=== PATIENT | male | born 1945 | race Caucasian/White ===

== ENCOUNTER 2016-05-16 14:31 | Outpatient (RCR) | payer MEDICARE, OTHER ==
--- OUTSIDE RECORDS SUMMARY | 2016-02-23 09:55 | XMS REPORT | Continuity of Care Document ---
Author Author [facility] Organization [facility] Address Unknown Phone Unavailable Care Team Providers Care Cripple Cutter Name Role Phone Ranulfo Oswaldo PCP [phone] Source Comments Some departments are not documenting in the electronic medical record. If you do not see the information that you expected, contact Release of Information in the Health Information Management department at [phone] for further assistance in locating additional records.[facility] Active Allergies and Adverse Reactions No Known Allergies Current Medications Prescription Sig. Disp. Refills Start End Date Status Date levETIRAcetam (KEPPRA) Take 1 Tab by mouth twice 180 Tab 3 08/03/19 Active 500 mg tablet daily. 16 acetaminophen (TYLENOL) Take 2 Tabs by mouth 30 Tab 1 08/19/19 Active 325 mg tablet every 4 hours as needed. 16 dexamethasone (DECADRON) Take 1 Tab by mouth as 90 Tab 0 08/19/19 Active 4 mg tablet directed. Taper schedule: 16 4 mg q 8 hours for 3 days, then 4 mg q 12 hours for 3 days, then 2 mg q 12 hours , and continue docusate (COLACE) 100 mg Take 1 Cap by mouth twice 180 Cap 3 08/19/19 Active capsule daily. 16 temozolomide (TEMODAR) 20 1 tab daily 30 Cap 1 08/31/19 Active mg capsule 16 Temozolomide 140 mg cap 1 tab daily 30 Cap 1 08/31/19 Active 16 ondansetron (ZOFRAN) 8 mg 1 tab daily 1 hour prior 30 Tab 11 08/31/19 Active tablet to chemo daily 16 trimethoprim/sulfamethoxa take 1 tab 3 times weekly 12 Tab 3 08/31/19 Active zole (BACTRIM DS) 160/800 16 mg tablet LORazepam (ATIVAN) 1 mg 1 tab 1 hour prior to 30 Tab 5 08/31/19 Active tablet chemo daily 16 Active Problems Problem Noted Date Urinary retention 08/18/2015 GBM (glioblastoma multiforme) (HCC) 08/16/2015 Overview: HPI: Mr. Mendoza is a 69 y.o.gentleman who presented with dizziness, headaches, lethargy, and worsening memory loss beginning of July. The symptoms progressively worsened over three weeks. He had an MRI of the brain performed 07/26/2015. This showed irregularly peripherally enhancing mass involving the right temporal lobe with expansion of the temporal lobe and surrounding edema most consistent with a glioma tumor such as glioblastoma multiforme. He did not have any seizures. He underwent right temporal craniotomy, tumor resection on 08/16/15. Pathology showed Glioblastoma, WHO Grade IV. He has a post op MRI head that showed interval right temporal mass resection without evidence of residual mass, expected postoperative blood products and edema resulting in mild mass effect and minimal right to left midline shift. Mr. Mendoza has recovered well from surgery without any deficits. Recommendations: Reviewed MRI and pathology today with Mr. Mendoza and his . Discussed that unfortunately glioblastoma is not a curable cancer but is treatable. We recommended standard treatment for glioblastoma with concurrent temozolomide and radiation. Temozolamide dose will be 75mg/m2 daily during radiation. Will start temozolomide as soon as possible, prescription sent. Have sent prescription for Bactrim three times a week. Recommended that he take zofran 2 hours prior to radiation and temozolomide 1 hour prior to radiation. Following completion of radiation will have a treatment break with repeat MRI then will recommend temozolomide adjuvantly for at least months. Patient prefers to have treatment in [place]. Will refer to Dr. Craft and radiation oncology in [place] for further treatment. I reviewed for them the natural history, epidemiology, treatment, prognosis, toxicity of treatment and options with the patient and his . I reviewed the MRI with them. All their questions were answered. HTN (hypertension) 08/16/2015 Brain tumor (HCC) 08/09/2015 Most Recent Encounters Date Type Specialty Providers Description 12/21/2015 Refill Neurosurgery Oswaldo Winchester MD Social History Tobacco Use Types Packs/Day Years Used Date Never Smoker Smokeless Tobacco: Former Chew Quit: User 05/21/2005 Comments: used chew ~20 years Alcohol Use Drinks/Week oz/Week Comments Yes 5 Standard 3.0 drinks or equivalent Last Filed Vital Signs Vital Sign Reading Time Taken Blood Pressure 138/72 09/07/2015 11:37 AM CDT Pulse 65 09/07/2015 11:37 AM CDT Temperature 36.8 C (98.2 F) 08/31/2015 10:54 AM CDT Respiratory Rate - - Height 1.765 m (5' 9.49") 09/07/2015 11:37 AM CDT Weight 90.266 kg (199 lb) 09/07/2015 11:37 AM CDT Body Mass Index 28.98 09/07/2015 11:37 AM CDT Oxygen Saturation 98% 08/31/2015 10:54 AM CDT Plan of Care Health Maintenance Due Date Last Done Comments Physical (Comprehensive) 10/20/1950 Exam Pertussis Vaccine 10/20/1954 Tetanus Vaccine 10/20/1960 Colorectal Cancer 10/20/1993 Screening Shingles Vaccine 2003 Prevnar/Pneumovax (#1) 10/20/2008 Influenza Vaccine 01/20/2016 Results from Last 3 Months Not on file
[2016-02-23 12:08] LABS: BASOPHILS % (AUTO) 0 % (0-10); EOSINOPHILS # (AUTO) 0.2 10^3/uL (0.0-0.3); EOSINOPHILS % (AUTO) 4 % (0-10); LYMPHOCYTES # (AUTO) 0.5 X 10^3 (1.0-4.0); LYMPHOCYTES % (AUTO) 13 % (12-44); MEAN CORPUSCULAR HEMOGLOBIN 37 PG (25-34); MEAN CORPUSCULAR HGB CONC 34 G/DL (32-36); MEAN CORPUSCULAR VOLUME 109 FL (80-99); MEAN PLATELET VOLUME 7.9 FL (7.4-10.4); MONOCYTES # (AUTO) 0.4 X 10^3 (0.0-1.0); MONOCYTES % (AUTO) 9 % (0-12); NEUTROPHILS % (AUTO) 75 % (42-75); PLATELET COUNT 157 10^3/uL (130-400); RED BLOOD COUNT 2.99 10^6/uL (4.35-5.85); RED CELL DISTRIBUTION WIDTH 14.6 % (10.0-14.5); WHITE BLOOD COUNT 4.1 10^3/uL (4.3-11.0)
[2016-02-23 12:45] LABS: ALANINE AMINOTRANSFERASE 20 U/L (0-55); ALBUMIN 4.1 G/DL (3.2-4.5); ANION GAP 12 MMOL/L (5-14); ASPARTATE AMINO TRANSFERASE 20 U/L (5-34); BILIRUBIN,TOTAL 0.5 MG/DL (0.1-1.0); BLOOD UREA NITROGEN 21 MG/DL (7-18); BUN/CREATININE RATIO 24; CARBON DIOXIDE 21 MMOL/L (21-32); CHLORIDE 108 MMOL/L (98-107); CREATININE SERUM 0.87 MG/DL (0.60-1.30); GFR ESTIMATED > 60; GLUCOSE 100 MG/DL (70-105); POTASSIUM 4.5 MMOL/L (3.6-5.0); SODIUM 141 MMOL/L (135-145); TOTAL PROTEIN 7.3 G/DL (6.4-8.2)
[~2016-05-16 14:31] MED LIST: DECADRON PO; DOCU-143 PO; LEVE500T6 PO; LEVE500T99 PO; LORA0.5T PO; LORA1TAB PO; SENN-36 PO; SULF-222 PO; TEMO140C3 PO
[2016-05-16 15:33] LABS: BASOPHILS % (AUTO) 0 % (0-10); EOSINOPHILS # (AUTO) 0.1 10^3/uL (0.0-0.3); EOSINOPHILS % (AUTO) 2 % (0-10); LYMPHOCYTES # (AUTO) 0.4 X 10^3 (1.0-4.0); LYMPHOCYTES % (AUTO) 10 % (12-44); MEAN CORPUSCULAR HEMOGLOBIN 37 PG (25-34); MEAN CORPUSCULAR HGB CONC 34 G/DL (32-36); MEAN CORPUSCULAR VOLUME 109 FL (80-99); MEAN PLATELET VOLUME 8.6 FL (7.4-10.4); MONOCYTES # (AUTO) 0.5 X 10^3 (0.0-1.0); MONOCYTES % (AUTO) 14 % (0-12); NEUTROPHILS # (AUTO) 2.9 X 10^3 (1.8-7.8); NEUTROPHILS % (AUTO) 75 % (42-75); PLATELET COUNT 169 10^3/uL (130-400); RED BLOOD COUNT 3.21 10^6/uL (4.35-5.85); RED CELL DISTRIBUTION WIDTH 13.7 % (10.0-14.5); WHITE BLOOD COUNT 3.9 10^3/uL (4.3-11.0)
[2016-05-16 15:53] LABS: ALANINE AMINOTRANSFERASE 16 U/L (0-55); ALBUMIN 4.4 G/DL (3.2-4.5); ANION GAP 11 MMOL/L (5-14); ASPARTATE AMINO TRANSFERASE 20 U/L (5-34); BILIRUBIN,TOTAL 0.6 MG/DL (0.1-1.0); BLOOD UREA NITROGEN 26 MG/DL (7-18); BUN/CREATININE RATIO 30; CALCIUM 10.1 MG/DL (8.5-10.1); CARBON DIOXIDE 23 MMOL/L (21-32); CHLORIDE 105 MMOL/L (98-107); CREATININE SERUM 0.88 MG/DL (0.60-1.30); GFR ESTIMATED > 60; GLUCOSE 123 MG/DL (70-105); LACTATE DEHYDROGENASE 218 U/L (125-220); POTASSIUM 4.1 MMOL/L (3.6-5.0); SODIUM 139 MMOL/L (135-145); TOTAL PROTEIN 7.8 G/DL (6.4-8.2)
== END 2016-05-23 | disposition home or self-care (01) ==
LOC: ONC 14:31
PROVIDERS: ATTEND Internal Medicine Hematology & Oncology
DX: C71.2 Malignant neoplasm of temporal lobe (principal)
CPT/HCPCS: 36415; 80053; 83615; 85025; 99213

== ENCOUNTER → 2016-06-06 | Outpatient (CLI) | payer MEDICARE, OTHER ==
[~2016-06-06] MED LIST changes: +GADOBUTROL 10 MMOL/10 ML (GADAVIST) VIAL IV ONE
--- OUTSIDE RECORDS SUMMARY | 2016-06-06 10:39 | XMS REPORT | Continuity of Care Document ---
Author Author [facility] Organization [facility] Address Unknown Phone Unavailable Care Team Providers Care Rad Tech Name Role Phone Ranulfo Oswaldo PCP [phone] Source Comments Some departments are not documenting in the electronic medical record. If you do not see the information that you expected, contact Release of Information in the Health Information Management department at [phone] for further assistance in locating additional records.[facility] Active Allergies and Adverse Reactions No Known [...] (glioblastoma multiforme) (HCC) 08/16/2015 Overview: HPI: Mr. Mendoaz is a 69 y.o.gentleman who presented with [...] months. Patient prefers to have treatment in [place]. Will refer to Dr. Craft and radiation oncology in [place] for further treatment. I reviewed for them the natural history, epidemiology, treatment, prognosis, toxicity of treatment and options with the patient and his . I reviewed the MRI with them. All their questions were answered. HTN (hypertension) 08/16/2015 Brain tumor (HCC) 08/09/2015 Social History Tobacco Use Types Packs/Day Years [...]
--- NOTE | 2016-06-06 12:48 | Diagnostic Imaging Report ---
PROCEDURE: MR imaging of the brain with and without contrast. TECHNIQUE: Multiplanar, multisequence MR imaging of the brain was performed with and without contrast. COMPARISON: 02/23/2016, and outside study of 04/04/2016. FINDINGS: There is increased T2 signal abnormality and mass effect within the anterior aspect of the right temporal lobe near the resection cavity. This is associated with a large enhancing mass developed since prior study. On the loaded outside study dated 04/04/2016, there is a tiny nodule seen at this location. This has progressed significantly and now measures 3.0 x 3.1 x 3.0 cm with significant increase in the mass effect in this region. There is increased T2 signal abnormality involving the right basal ganglia. Again noted periventricular and deep white matter T2 hyperintense signal abnormality-like enhancement asymmetric and more prominent on the right side. This is without a significant change. Post craniotomy changes along the right temporal region are again noted. The brainstem and cerebellum appear unremarkable. There is normal size of the pituitary gland with no hypothalamic or pineal region mass. IMPRESSION: Interval development of a 3.1-cm enhancing mass in the resection bed along the anterior aspect of the right temporal lobe with associated increased T2 signal abnormality around it extending to the posterior aspect of the right temporal lobe and to the right basal ganglia which may represent vasogenic edema with possible component of tumor infiltration. Report was stat faxed to office of DEJAN Burgess, @ 12:43 PM/hank. Dictated by: Dictated on workstation # [id number]
== END ==
LOC: RAD 10:36
PROVIDERS: ATTEND Nurse Practitioner Adult Health
DX: C71.2 Malignant neoplasm of temporal lobe (principal)
CPT/HCPCS: 70553